=== PATIENT | female | born 1940 | race Caucasian/White ===

== ENCOUNTER 2017-04-13 18:30 | Emergency (ER) | payer OTHER | END 2017-04-13 19:51 | disposition home or self-care (01) | LOC: EDH 18:30 | DX: S62.395A Other fracture of fourth metacarpal bone, left hand, initial encounter for closed fracture (principal); I10 Essential (primary) hypertension; W18.39XA Other fall on same level, initial encounter; Y93.01 Activity, walking, marching and hiking; Y92.098 Other place in other non-institutional residence as the place of occurrence of the external cause; Y99.8 Other external cause status | CPT/HCPCS: 73130 ==